=== PATIENT | male | born 1970 | race Caucasian/White ===

== ENCOUNTER 2016-10-01 11:15 | Emergency (ER) | payer OTHER ==
[2016-10-01 14:05] VITALS: BP 117/68
[2016-10-01] MEDS ORDERED: HYDROcodone/ACETAMIN 5-325 MG* 1 TAB PO ONE (14:38)
--- NOTE | 2016-10-01 14:49 | UC ---
Cuca Brown Alfonso, scribed for Kamilah Esteban MD on 10/01/16 at 1438 . Upper Extremity HPI - HPI Summary HPI Summary: This patient is a 46 year old M presenting to [facility] accompanied by with a chief complaint of left shoulder injury that occurred at 0330 this morning. Pain is reported to be an ache. Pt rates the pain 8/10 in severity- increases with movement and palpation. Pain alleviated by rest. Symptoms not alleviated by 2 ibuprofen. Pt reports that the injury occurred secondary to a seizure at 0330 that occurred during his sleep. Pt denies falling out of bed during this seizure. Pt denies arm numbness, tingling, and weakness. Pt is right hand dominant. Pt presented with an arm sling purchased 20 minutes [employer]GRAPH[employer]IST which provided relief. Pt s/p surgery to same shoulder [address] Desouza. No h/o dislocation. PMHx of seizures for 3 months being managed by Dr. Cole. He reports Dr. Cole has prescribed medication that the pt is non-compliant with. Pt states he has scheduled a neurology follow-up. Confirmed with patient strong recommendation not to drive. is his school bus driver/custodian. Patients medication reviewed this visit. - History of Current Complaint Chief Complaint: UCUpperExtremity Stated Complaint: SHOULDER INJURY Time Seen by Provider: 10/01/16 14:28 Hx Obtained From: Patient, Family/Animal Physiologist Onset/Duration: Sudden Onset, Lasting Hours - 0330, Still Present Severity Initially: Moderate Severity Currently: Moderate Pain Intensity: 8 Pain Scale Used: 0-10 Numeric Location Of Pain: Is Discrete @ - left anterior/posterior shoulder Aggravating Factor(s): Movement, Lifting Alleviating Factor(s): Rest Associated Signs And Symptoms: Positive: Negative Related History: Dominant Hand Right - Allergies/Home Medications Allergies/Adverse Reactions: Allergies Allergy/AdvReac Type Severity Reaction Status Date / Time No Known Allergies Allergy Verified 10/01/16 14:05 PMH/Surg Hx/FS Hx/Imm Hx Previously Healthy: Yes - Surgical History Surgical History: Yes Surgery Procedure, Year, and Place: ACHILLES REPAIR LEFT- [facility]. RIGHT ANKLE TENDON REPAIR-[facility]. CYST REMOVAL. left shoulder surgery 2012 - Family History Known Family History: Positive: Diabetes, Other - Cancer - Social History Lives: With Family Alcohol Use: Rare Substance Use Type: None Smoking Status (MU): Never Smoked Tobacco Review of Systems Constitutional: Negative Skin: Negative Eyes: Negative ENT: Negative Respiratory: Negative Cardiovascular: Negative Gastrointestinal: Negative Genitourinary: Negative Motor: Other - Positive left anterior shoulder Neurovascular: Negative Musculoskeletal: Negative Neurological: Other - Positive seizures; negative arm numbness, tingling, and weakness. Psychological: Negative All Other Systems Reviewed And Are Negative: Yes Physical Exam Triage Information Reviewed: Yes Appearance: Well-Appearing, No Pain Distress, Well-Nourished Vital Signs: Initial Vital Signs Temp 97.8 F 10/01/16 14:01 Pulse 63 10/01/16 14:01 Resp 16 10/01/16 14:01 BP 117/68 10/01/16 14:01 Pulse Ox 98 10/01/16 14:01 Vital Signs Reviewed: Yes ENT: Positive: Hearing grossly normal Neck: Positive: Supple, Nontender, No Lymphadenopathy Respiratory: Positive: Chest non-tender, Lungs clear, Normal breath sounds, No respiratory distress, No accessory muscle use Cardiovascular: Positive: Other: - 2+ radial, 2+ ulnar CBT < 2 sec Musculoskeletal: Positive: Other: - + TTP left anterior shoulder + left mild left posterior shoulder Pain with abduction and full extension + flex/ext elbow , wrist + pronate/supinate + flex/ext wrist Neurological Exam: Normal Neurological: Positive: Other: - + sensation throughout including left lateral UE, + thumb up, a ok, finger spread, finger cross + gross sensation Psychological Exam: Normal Skin Exam: Normal Diagnostics - Radiology Shoulder X-Ray Radiology Interpretation Completed By: Radiologist - CASA-SAC FRACTURE. Re-Evaluation - Re-Evaluation First Eval Re-Evaluation Time: 15:19 Change: Improved - REviewed with pt No known h/o dislcation. Will refer to orthopedic sling ice rest narcotic Rx given with precaustions - precautions given again reviewed recommendations for driving and machinery given seziure + abduction - PROM to 90 degrees - limited second to pain + extenstion to 90 PROM - limited second to pain Upper Extremity Course/Dx - Course Course Of Treatment: differential includes: dislocation, fracture, sprain, strain, tear. will give analgesia. ice. rest. ortho referral. if dislocation, ED transfer. pt and s spouse comfortable and in agreement with plan. 46 year old MF presents to the [facility] with a CC of left shoulder injury that occurred at 0330. Pt reports that the injury occurred secondary to a seizure at 0330 that occurred during his sleep. Pt denies falling out of bed during this seizure. Pt denies arm numbness, tingling, and weakness. Pt s/p surgery to same shoulder [address] Desouza. No h/o dislocation. PMHx of seizures for 3 months being managed by Dr. Cole. He reports Dr. Cole has prescribed medication that the pt is non-compliant with. Shoulder X-Ray reveals HILL-SACHS FRACTURE. We discussed patient care with Dr. Kruse ( radiologist) at 1515. Patient will be discharged with follow up from Dr. Cole ( neurology) and Dr. Pedroza (orthopedics). Pt is agreeable with this plan. Pt with left shoulder pain which occurred at 330 during seizure. Pt with pain with palpation and movement. distal CSM intact - Differential Dx/Diagnosis Provider Diagnoses: hill sachs deformity left. shoulder injury left. seizure - Physician Notification/Consults Discussed Patient Care With: Antoine Kruse Time Discussed With Above Provider: 15:15 Instructed by Provider To: Other - Consulted Dr. Kruse (radiologist) to discuss if the x-ray finding is acute or related to pt's PSHx. - no current dislocation Discharge - Discharge Plan Condition: Stable Disposition: HOME Prescriptions: HYDROcodone/ACETAMIN 5-325 MG* [[place]ord 5-325 TAB*] 1 - 2 tab PO Q6H PRN #20 tab MDD 8 PRN Reason: Pain Patient Education Materials: Shoulder Pain (ED) Referrals: Yesika Pedroza MD [Medical Doctor] - As Soon As Possible Additional Instructions: - Wear sling for comfort and support. Try to relax your arm in sling to let your muscles rest - Okay to alternate ibuprofen (Advil, Motrin) 600mg and tylenol product ( Tylenol or [place]ord) every 3 hours pain. Take with food. Se[place]ord contains a narcotic - may cause droswiness and constipation - apply ice, 20 minutes at a time, 2-3 times a day for pain - Contact the orthopedic referral to schedule a follow-up appointment. You may contact a different orthopedist if you refer. - It is strongly recommended you refrain from driving, operating equiptment until you have been cleared by your neurologist. You should also refrain from these activities while taking Se[place]ord The documentation as recorded by the scribe, Caetta,Aguilar accurately reflects the service I personally performed and the decisions made by , Kamilah Esteban MD.
--- NOTE | 2016-10-01 15:11 | RAD ---
INDICATION: Left shoulder injury. TECHNIQUE: 5 views of the left shoulder were obtained. FINDINGS: There is flattening of the superior lateral aspect of the humeral head consistent with a Hill-Sachs type fracture. The bones appear to be in normal alignment. IMPRESSION: HILL-SACHS FRACTURE.
== END 2016-10-01 15:41 | disposition home or self-care (01) ==
LOC: UCEAST 11:15
DX: S42.292A Other displaced fracture of upper end of left humerus, initial encounter for closed fracture (principal); S49.92XA Unspecified injury of left shoulder and upper arm, initial encounter; X50.0XXA Overexertion from strenuous movement or load, initial encounter; Y93.89 Activity, other specified; Y92.003 Bedroom of unspecified non-institutional (private) residence as the place of occurrence of the external cause; Y99.9 Unspecified external cause status; R56.9 Unspecified convulsions; T50.906A Underdosing of unspecified drugs, medicaments and biological substances, initial encounter; Z91.128 Patient's intentional underdosing of medication regimen for other reason
CPT/HCPCS: 99212; G0463

== ENCOUNTER 2017-09-08 18:29 | Emergency (ER) | payer OTHER ==
--- OUTSIDE RECORDS SUMMARY | 2017-09-08 18:43 | XMS REPORT ---
:1970 External Reference #:[id number] Author Organization [facility] Address [address] [facility] [place] [address] Phone [phone] Care Team Providers Name Role Phone Enma Field MD Care Team Information Roll Changer Unavailable Enma Field MD Primary Care Physician Unavailable Payers Type Date Identification Numbers Payment Provider Subscriber Commercial Effective: Policy Number: [employer] Cody Shirley 2006 [id number] [employer] Number: [id number] [address] PayID: [id number] [place] [address] Problems Date Description Provider Status Onset: 05/10/2017 Local-rel symptc epi w simp prt seiz,not Marilyn Cole MD Active ntrct, w/o stat epi Onset: 05/10/2017 Difficulty breathing Marilyn Cole MD Active Onset: 05/10/2017 Complex partial epileptic seizure Marilyn Cole MD Active Onset: 09/17/2016 Other seizures Marilyn Cole MD Active Onset: 07/11/2011 Impaired fasting glycaemia Juanita Campbell M.D. Active Onset: 07/11/2011 Pure hypercholesterolemia Juanita Campbell M.D. Active Family History Date Family Member(s) Problem(s) Comments General heart disease General diabetes General cancer General Hypertension Social History Type Date Description Comments Marital Status Lives With Spouse Occupation college teacher Cigars Currently Smokes an Occasional 1/4 in past three weeks Cigar ETOH Use Currently consumes alcohol 2/week Smoking Patient has never smoked Exercise Type/Frequency Exercises regularly Allergies, Adverse Reactions, Alerts Date Description Reaction Status Severity Comments 03/30/2010 No Known Drug Allergy active Medications Medication Date Status Form Strength Qnty SIG Indications Ordering Provider Aptiom 10/22 Active Tablets 400mg 90tab 3 tablets Christopher s daily Casey Bruno CBD Active prn Unknown /0000 Hydrocodone-Ac 10/05 Hx Tablets 5-325mg 20tab 1 tabs by Brandon mendoza s mouth every MD Mary - 6-8 hours as 05/09 needed for pain No Active 09/17 Hx Unknown Medications /2016 - 09/17 Oxcarbazepine 09/17 Hx Tablets 300mg 120ta 1 by mouth G40.89 Marilyn Cole, bs twice a day - x7 day then 10/04 1 in the Am /2016 and 2 in the PM x7 days then 2 twice a day. Magic 07/12 Hx 360un swish and Ervin Stanford Mouthwash-Ma its spit 5-10ml SHEET ROCK NAILER ox,Lidocaine, - every 6 Nystatin,Diphe 09/17 hours nhydramine Hydrocodone-Ac 07/04 Hx Tablets 5-325mg 30tab take 1-2 S01.512A reji [place] s tablets SHEET ROCK NAILER - every 8 09/17 hours for pain. Oxycodone-Acet 06/30 Hx Tablets 5-325mg 30tab 1-2 tabs po Reji Young aminophen s q 4 hrs prn M.D. - pain 08/31 Percocet 05/19 Hx Tablets 5-325mg 60tab take 1-2 Reji s tabs by MBennie - mouth q4-6 / hours needed pain Oxycodone/Acet 04/21 Hx Tablets 5-325mg 30tab 1-2 tabs po Reji Young, aminophen s q 4 hrs prn M.D. - pain 06/30 Percocet 04/09 Hx Tablets 5-325mg 60tab 1-2 tabs po Reji Young, s q4-6 hrs prn M.D. - pain 04/21 Valium 01/28 Hx Tablets 10mg 1tabs 1 tablet po 30 minutes Varn, N.P. - before mri 04/21 Tramadol HCL 01/28 Hx Tablets 50mg 30tab 1 tablet s three to Varn, N.P. - four times 04/21 daily needed Vivotif Pamella 01/21 Hx Capsules 4caps one po qod V65.49 DR for 4 doses Varn, N.P. - 01/29 Malarone 01/21 Hx Tablets 250-100mg 30tab one po daily V65.49 s starting 1 - Varn, N.P. - 2 days 04/21 arriving and continue for 7 days after leaving destination No Active 06/21 Hx Juanita Campbell, MCarlosDCarlos - 01/21 Oxycodone/Acet 00/00 Hx Unknown aminophen /0000 - 04/21 Advil 00/ Hx Unknown /0000 - 09/17 Levetiracetam Hx Tablets 750mg take one Unknown /0000 tablet by - mouth twice 09/17 a day /2016 Vitamin B 00/00 Hx Unknown /0000 - 05/09 Vitamin E 00/00 Hx Unknown /0000 - 05/09 Immunizations CPT Code Status Date Vaccine Lot # [id number] Given 02/20/2013 Hepatitis B Vaccine Adult Dosage [id number] Given 02/20/2013 Tdap - Tetanus/Diptheria/Acellular Pertussis 24974 Given 02/20/2013 Tdap - Tetanus/Diptheria/Acellular Pertussis [id number] 23894 Given 01/21/2013 Hepatitis B Vaccine Adult Dosage [id number] 77047 Given 01/21/2013 Hepatitis A Vaccine Adult Dosage [id number] 31536 Given 02/01/2006 Influenza Virus 3Yrs & Over [id number] Given 02/01/2006 Influenza Virus 3Yrs & Over Vital Signs Date Vital Result Comment 08/21/2017 Height 71 inches 5'11" Weight 185.00 lb Heart Rate 68 /min BP Systolic Sitting 116 mmHg BP Diastolic Sitting 78 mmHg Respiratory Rate 16 /min BMI (Body Mass Index) 25.8 kg/m2 05/10/2017 Height 71 inches 5'11" Weight 189.56 lb Heart Rate 70 /min BP Systolic 134 mmHg BP Diastolic 88 mmHg BMI (Body Mass Index) 26.4 kg/m2 10/10/2016 Height 71 inches 5'11" Weight 179.00 lb BP Systolic 116 mmHg BP Diastolic 66 mmHg Body Temperature 97.9 F Pain Level 5 BMI (Body Mass Index) 25.0 kg/m2 10/05/2016 Height 71 inches 5'11" Weight 179.00 lb Heart Rate 78 /min BP Systolic 118 mmHg BP Diastolic 72 mmHg BMI (Body Mass Index) 25.0 kg/m2 09/17/2016 Height 71 inches 5'11" Weight 181.00 lb Heart Rate 68 /min BP Systolic Sitting 110 mmHg BP Diastolic Sitting 84 mmHg Respiratory Rate 14 /min BMI (Body Mass Index) 25.2 kg/m2 07/20/2016 Weight 178.25 lb Heart Rate 72 /min BP Systolic 118 mmHg BP Diastolic 80 mmHg Body Temperature 97.0 F O2 % BldC Oximetry 97 % 07/04/2016 Weight 182.50 lb Heart Rate 78 /min BP Systolic 126 mmHg BP Diastolic 88 mmHg Body Temperature 98.4 F O2 % BldC Oximetry 98 % 09/01/2013 Height 73 inches 6'1" Heart Rate 60 /min BP Systolic 116 mmHg BP Diastolic 86 mmHg 06/30/2013 Height 73 inches 6'1" Weight 190.00 lb Heart Rate 80 /min BMI (Body Mass Index) 25.1 kg/m2 05/19/2013 Height 73 inches 6'1" Weight 190.00 lb Heart Rate 64 /min BMI (Body Mass Index) 25.1 kg/m2 03/17/2013 Height 73 inches 6'1" Weight 190.00 lb Heart Rate 65 /min BP Systolic 134 mmHg BP Diastolic 84 mmHg BMI (Body Mass Index) 25.1 kg/m2 01/21/2013 Weight 198.00 lb Heart Rate 80 /min BP Systolic Sitting 124 mmHg BP Diastolic Sitting 82 mmHg 02/15/2012 Height 71 inches 5'11" Weight 189.00 lb Heart Rate 80 /min BP Systolic Sitting 126 mmHg BP Diastolic Sitting 74 mmHg BMI (Body Mass Index) 26.4 kg/m2 01/16/2012 Height 71 inches 5'11" Weight 184.00 lb Heart Rate 78 /min BP Systolic Sitting 124 mmHg BP Diastolic Sitting 80 mmHg BMI (Body Mass Index) 25.7 kg/m2 12/31/2011 Height 71 inches 5'11" Weight 183.00 lb Heart Rate 80 /min BP Systolic Sitting 120 mmHg BP Diastolic Sitting 80 mmHg BMI (Body Mass Index) 25.5 kg/m2 07/11/2011 Height 71 inches 5'11" Weight 195.00 lb Heart Rate 78 /min BP Systolic Sitting 124 mmHg BP Diastolic Sitting 70 mmHg BMI (Body Mass Index) 27.2 kg/m2 06/22/2011 Height 71 inches 5'11" Weight 192.00 lb Heart Rate 80 /min BP Systolic Sitting 112 mmHg BP Diastolic Sitting 74 mmHg BMI (Body Mass Index) 26.8 kg/m2 03/30/2010 Heart Rate 80 /min BP Systolic 112 mmHg BP Diastolic 76 mmHg Body Temperature 99.3 F Results Test Date Test Result H/L Range Note Comp Metabolic Panel 05/09/2017 Sodium 137 mmol/L 133-145 Potassium 4.3 mmol/L 3.5-5.0 Chloride 105 mmol/L 101-111 Co2 Carbon Dioxide 23 mmol/L 22-32 Anion Gap 9 mmol/L 2-11 Glucose 94 mg/dL 70-100 Blood Urea Nitrogen 20 mg/dL 6-24 Creatinine 0.86 mg/dL 0.67-1.17 BUN/Creatinine Ratio 23.3 High 8-20 Calcium 9.6 mg/dL 8.6-10.3 Total Protein 6.8 g/dL 6.4-8.9 Albumin 4.4 g/dL 3.2-5.2 Globulin 2.4 g/dL 2-4 Albumin/Globulin Ratio 1.8 1-3 Total Bilirubin 0.60 mg/dL 0.2-1.0 Alkaline Phosphatase 61 U/L 34-104 Alt 18 U/L 7-52 Ast 19 U/L 13-39 Egfr Non- 96.2 >60 Egfr 123.7 >60 1 CBC Auto Diff 05/09/2017 White Blood Count 4.7 10^3/uL 3.5-10.8 Red Blood Count 4.92 10^6/uL 4.0-5.4 Hemoglobin 15.6 g/dL 14.0-18.0 Hematocrit 45 % 42-52 Mean Corpuscular Volume 91 fL 80-94 Mean Corpuscular Hemoglobin 32 pg High 27-31 Mean Corpuscular HGB Conc 35 g/dL 31-36 Red Cell Distribution Width 13 % 10.5-15 Platelet Count 194 10^3/uL 150-450 Mean Platelet Volume 7 um3 Low 7.4-10.4 Abs Neutrophils 1.8 10^3/uL 1.5-7.7 Abs Lymphocytes 2.3 10^3/uL 1.0-4.8 Abs Monocytes 0.4 10^3/uL 0-0.8 Abs Eosinophils 0.2 10^3/uL 0-0.6 Abs Basophils 0.1 10^3/uL 0-0.2 Abs Nucleated RBC 0 10^3/uL Granulocyte % 38.4 % 38-83 Lymphocyte % 48.1 % High 25-47 Monocyte % 8.3 % High 0-7 Eosinophil % 4.0 % 0-6 Basophil % 1.2 % 0-2 Nucleated Red Blood Cells % 0.1 Laboratory test 05/09/2017 Trileptal (Oxcarbazepine) 18 g/mL 3 - 35 2 finding Surgical Pathology 04/15/2012 S RUN DATE: <SEE NOTE> Lipid Profile 01/04/2012 Triglycerides 51 mg/dL 40-200 (Trig/Chol/HDL) Cholesterol 206 mg/dL High Less than 200 4 HDL Cholesterol 56 mg/dL 40-60 5 Cholesterol/HDL Ratio 3.7 AVERAGE 1-4.44 LDL Cholesterol 139.8 mg/dL High Less Than 100 Laboratory test finding 01/04/2012 Hemoglobin A1c 5.5 % Less than 6.0 6 Immunoglobulin A 166 mg/dL 61 - 356 7 Transglutaminase Igg & Iga 01/04/2012 Tissue Transglutaminase IgA Ab <1.2 U/ mL 8 Tissue Transglutaminase IgG Ab <1.2 U/mL 9 Comp Metabolic Panel 01/04/2012 Sodium 140 mmol/L 133-145 Potassium 4.3 mmol/L 3.5-5.0 Chloride 107 mmol/L 101-111 Co2 Carbon Dioxide 27.0 mmol/L 22-32 Anion Gap 6.0 mmol/L 2-11 Glucose 92 mg/dL 70-100 Blood Urea Nitrogen 13 mg/dL 6-24 Creatinine 1.00 mg/dL 0.50-1.40 BUN/Creatinine Ratio 13.0 8-20 Calcium 9.2 mg/dL 8.1-9.9 Total Protein 5.8 GM/DL Low 6.2-8.1 Albumin 4.0 GM/DL 3.6-5.4 Globulin 1.8 GM/DL Low 2-4 Albumin/Globulin Ratio 2.2 1-3 Total Bilirubin 1.1 mg/dL High 0.1-1.0 10 Alkaline Phosphatase 48 U/L 30-110 Alt 20 U/L 14-54 Ast 17 U/L 12-42 Egfr Non- 82.8 >60 Egfr 106.4 >60 11 Lipid Panel - [facility] 01/04/2012 Creatine Kinase 170 U/L 0-200 12 Lipid Panel - [facility] 06/22/2011 CPK (Creatine Kinase) 249 U/L High 0-200 Comp Metabolic Panel 06/22/2011 Sodium 140 mmol/L 135-145 Potassium 4.5 mmol/L 3.5-5.0 Chloride 108 mmol/L 101-111 Co2 (Carbon Dioxide) 28.0 mmol/L 22-32 Anion Gap 4.0 mmol/L 2-11 13 Glucose 97 mg/dL 70-100 BUN 11 mg/dL 6-24 Creatinine 0.9 mg/dL 0.50-1.40 One Over Creatinine 1.11 BUN/Creatinine Ratio 12.2 8-20 Calcium 9.4 mg/dL 8.1-9.9 Total Protein 6.6 GM/DL 6.2-8.1 Albumin 4.3 GM/DL 3.6-5.4 Globulin 2.3 GM/DL 2-4 Albumin/Globulin Ratio 1.9 1-3 Bilirubin Total 0.9 mg/dL 0.4-1.5 14 Alkaline Phosphatase 50 U/L 39-117 Alt (SGPT) 22 U/L 17-63 Ast (Sgot) 22 U/L 12-42 eGFR Non- 93.9 > 60 eGFR 120.8 > 60 15 Lipid Profile (Trig/Chol/HDL) 06/22/2011 Triglyceride 53 mg/dL 40-200 Cholesterol 263 mg/dL High Less Than 200 16 High Density Lipoprotein 54 mg/dL 40-60 17 Cholesterol/HDL Ratio 4.87 AVERAGE 1-4.97 Low Density Lipoprotein 198 mg/dL High Less Than 100 18 Laboratory test finding 06/22/2011 Hemoglobin A1c 5.6 % Less Than 6.0 19 1 Because ethnic data is not always readily available, this report includes an eGFR for both -Americans and non- Americans. The National Kidney Disease Education Program (NKDEP) does not endorse the use of the MDRD equation for patients that are not between the ages of 18 and 70, are , have extremes of body size, muscle mass, or nutritional status, or are non- or non-. According to the National Kidney Foundation, irrespective of diagnosis, the stage of the disease is based on the level of kidney function: Stage Description GFR(mL/min/1.73 m(2)) 1 Kidney damage with normal or decreased GFR 90 2 Kidney damage with mild decrease in GFR 60-89 3 Moderate decrease in GFR 30-59 4 Severe decrease in GFR 15-29 5 Kidney failure <15 (or dialysis) 2 ADDITIONAL INFORMATION This test was developed and its performance characteristics determined by [facility] in a manner consistent with CLIA requirements. This test has not been cleared or approved by the U.S. Food and Drug Administration. Test Performed by: [facility] [address] [place] [id number] 3 RUN DATE: 04/17/12 [facility] LAB LIVE PAGE 1 RUN TIME: 16[address] [place], [place] [address] Specimen Inquiry Name: CODY LOPEZ : [address]: Scott Stewart MD Acct: [id number] Unit: [id number] AGE: 41 Location: [facility] Re04/15/12 SEX: M Status: REG REF SPEC: [id number] ABELINO: 04/15/12- SUBM DR: Scott Stewart MD REQ: [id number] RECD: 04/16/1251 STATUS: LAURA GONG DR: Juanita Campbell MD _ ORDERED: LEVEL IV/2 FINAL DIAGNOSIS 1. Colon, random biopsies: A. Large intestinal mucosa with mild architectural disorder and scattered lamina propria muciphages. B. No evidence of microscopic/lymphocytic colitis, collagenous colitis, or other chronic inflammatory bowel process identified. 2. Colon, 15 cm., biopsy: Hyperplastic polyp. COMMENTS: The findings in part 1 are most suggestive of resolving prior insult. CLINICAL HISTORY Diarrhea POST-OPERATIVE DIAGNOSIS To terminal ileum - normal. Random biopsy taken; polyp at 15 cm., biopsied GROSS DESCRIPTION 1. The specimen is received in formalin labelled Cody Lopez, Biopsies Random Colon, and consists of multiple plata, soft tissue fragments measuring 1.0 x 0.8 x 0.2 cm. Submitted entirely, one cassette. 2. The specimen is received in formalin labelled Cody Lopez, Biopsy Colon Polyp at 15 cm., and consists of a plata, soft tissue fragment measuring 0.3 x 0.2 x 0.2 cm. Submitted CONTINUED ON NEXT PAGE * ML=Testing performed at Main Lab DEPARTMENT OF PATHOLOGY, [facility] ReferralMD [place] [address] Mitchell Menjivar M.D. Director [facility] Permit #[id number] RUN DATE: 04/17/12 [facility] LAB LIVE PAGE 2 RUN TIME: [address] [facility] [employer] [place], [place] [address] Specimen Inquiry Patient: CODY LOPEZ [id number] (Continued) GROSS DESCRIPTION (Continued) GROSS DESCRIPTION (Continued) entirely, one cassette. Signed (signature on file) Mitchell Menjivar MD 1615 END OF REPORT * ML=Testing performed at Main Lab DEPARTMENT OF PATHOLOGY, [address] [place] [address] Mitchell Menjivar M.D. Director [facility] Permit #[id number] 4 Desirable: Less than 200 MG/DL Borderline-High Risk: 200-239 MG/DL High-Risk: 240 MG/DL and over 5 HDL Interpretation: Undesirable: High Risk: Less than 40 MG/DL Desirable: Low Risk: Greater than 60 MG/DL 6 Therapeutic target for the treatment of diabetes Mellitus patients is <7% HBA1C, and in selective patients <6.0%.Please refer to [place] [employer] Diabetic care guidelines for further information. 7 Test Performed by: [address] [address] Thermal Cutting Machine Operator: Vineet Strickland III, M.D. R 8 -- REFERENCE VALUE -- <4.0 (Negative) R 9 -- REFERENCE VALUE -- <6.0 (Negative) Test Performed by: [address] [address] [employer] Cutting Machine Operator: Vineet Strickland III, M.D. R 10 A metabolite of Naproxen, O-desmethylnaproxen, has been shown to interfere with the Jendrassik-Flandreau method for measuring total bilirubin. Samples from patients who have taken Naproxen have shown spurious elevation in total bilirubin levels. 11 Because ethnic data is not always readily available, this report includes an eGFR for both -Americans and non- Americans. The National Kidney Disease Education Program (NKDEP) does not endorse the use of the MDRD equation for patients that are not between the ages of 18 and 70, are , have extremes of body size, muscle mass, or nutritional status, or are non- or non-. According to the National Kidney Foundation, irrespective of diagnosis, the stage of the disease is based on the level of kidney function: Stage Description GFR(mL/min/1.73 m(2)) 1 Kidney damage with normal or decreased GFR 90 2 Kidney damage with mild decrease in GFR 60-89 3 Moderate decrease in GFR 30-59 4 Severe decrease in GFR 15-29 5 Kidney failure <15 (or dialysis) 12 FASTING 13 Anion gap measurement may be of limited value in the presence of any alkalosis, especially in a combined acid base disorder. . 14 A metabolite of Naproxen, O-desmethylnaproxen, has been shown to interfere with the Jendrassik-Nita method for measuring total bilirubin. Samples from patients who have taken Naproxen have shown spurious elevation in total bilirubin levels. 15 Because ethnic data is not always readily available, this report includes an eGFR for both -Americans and non- Americans. The National Kidney Disease Education Program (NKDEP) does not endorse the use of the MDRD equation for patients that are not between the ages of 18 and 70, are , have extremes of body size, muscle mass, or nutritional status, or are non- or non-. According to the National Kidney Foundation, irrespective of diagnosis, the stage of the disease is based on the level of kidney function: Stage Description GFR(mL/min/1.73 m(2)) 1 Kidney damage with normal or decreased GFR 90 2 Kidney damage with mild decrease in GFR 60-89 3 Moderate decrease in GFR 30-59 4 Severe decrease in GFR 15-29 5 Kidney failure <15 (or dialysis) 16 CHOLESTEROL INTERPRETATION: Desirable: Less than 200 MG/DL Borderline-High Risk: 200-239 MG/DL High-Risk: 240 MG/DL and over 17 HDL INTERPRETATION: Undesirable: High Risk: Less than 40 MG/DL Desirable: Low Risk: Greater than 60 MG/DL 18 LDL INTERPRETATION: Low Risk Optimal Level: LDL Less than 100 MG/DL Near or Above Optimal: LDL 100-129 MG/DL Borderline High Risk: LDL 130-159 MG/DL High Risk: LDL 160-189 MG/DL Very High Risk: LDL Greater than 189 MG/DL 19 THERAPEUTIC TARGET FOR THE TREATMENT OF DIABETES MELLITUS PATIENTS IS <7% HBA1C, AND IN SELECTIVE PATIENTS <6.0%. PLEASE REFER TO [place] [employer]ATION DIABETIC CARE GUIDELINES FOR FURTHER INFORMATION. Procedures Date CPT Code Description Status 09/03/2016 91956 EEG Recording Awake & Asleep Completed 07/02/2016 85409 EEG Recording Awake & Asleep Completed 04/10/2013 72734 Arthroscopy Shoulder Debridement Limited Completed 04/10/2013 53234 Arthroscopy Shoulder Debridement Limited Completed 04/10/2013 14924 Tenodesis Biceps Long Tendon Completed 04/10/2013 61287 Tenodesis Biceps Long Tendon Completed Encounters Type Date Location Provider CPT E/M Dx Office Visit 08/21/2017 [facility] [address] G40.109 3:30p R06.83 Office Visit 05/10/2017 11:30a [facility] [address] G40.109 R06.83 Office Visit 10/10/2016 3:30p [place] [address] S43.015A Of [facility] Office Visit 10/05/2016 10:30a [place] [address] S43.015A Of [facility] Office Visit 09/17/2016 9:00a [place] [address] G40.89 Services Of [facility] Office Visit 07/20/2016 9:00a [facility] [place] [address] Z00.00 - [place] Z13.220 Z13.1 Office Visit 07/04/2016 2:20p [facility] [place] [address] S01.512A - [place] Office Visit 07/03/2016 9:01a [facility], [address]47 R56.9 Assoc, Hospitalists Casey R73.9 E87.2 Office Visit 07/03/2016 2:26p [facility] [address] R56.9 Office Visit 07/02/2016 9:00a [facility] Assoc,[facility], 99342 R56.9 Hospitalists Casey R73.9 E87.2 Office Visit 07/02/2016 2:25p [facility] [address] R56.9 Office Visit 09/01/2013 8:15a [facility] Of Reji Desouza, 19434 719.41 C.M.A. M.Kassy Office Visit 03/17/2013 10:30a [facility] Of Berta Swan, 75372 840.7 C.M.A. RPA-C Office Visit 01/21/2013 9:40a [facility] Internal Medicine - Natalia Keita, 733[address] V65.49 [place] N.P. 719.41 V05.3 Office Visit 02/15/2012 8:40a [facility] Internal Medicine - Juanita Campbell M.D. 28851 272.0 [place] 783.21 Office Visit 01/16/2012 3:00p [facility] Internal Medicine - Juanita Campbell M.D. 61540 558.9 [place] 272.0 790.21 995.3 Office Visit 12/31/2011 9:40a [facility] Internal Medicine - Juanita Campbell M.D. 92485 272.0 [place] 790.21 558.9 Office Visit 07/11/2011 3:00p [facility] Internal Medicine - Juanita Campbell M.D. 81728 272.0 [place] 790.21 Office Visit 06/22/2011 10:00a [facility] Internal Medicine - Juanita Campbell M.D. 84787 V70.0 [place] 840.4 Office Visit 03/30/2010 4:15p DO Not Use [facility] Sonia Mao, 84816 478.6 M.D., FACP Office Visit 04/11/2009 2:00p DO Not Use [facility] Gracia Baum, 79408 780.60 M.D. 558.9 Office Visit 09/16/2008 8:30a DO Not Use [facility] Natalia Varn, 17040 709.9 N.P. 608.89 783.21 Office Visit 04/19/2008 1:15p DO Not Use [facility] Natalia Varn, 25131 V70.0 N.P. Office Visit 04/07/2008 2:30p DO Not Use [facility] Natalia Varn, 39218 380.4 N.P. Office Visit 05/20/2007 11:45a DO Not Use [facility] Natalia Varn, 76663 558.9 N.P. 079.99 Office Visit 12/25/2006 1:15p DO Not Use [facility] Natalia Varn, 14844 466.0 N.P. 461.9 Office Visit 04/01/2006 2:15p DO Not Use [facility] Natalia Varn, 69977 461.9 N.P. 466.0 Office Visit 02/01/2006 2:30p DO Not Use [facility] Sonia Mao, 77683 466.0 M.D., FACP 493.90 V04.81 Plan of Care 08/21/2017 - Marilyn Cole MDG40.109 Local-rel symptc epi w simp prt seiz,not ntrct, w/o stat epiReferral:[facility] Clinic/ CenterFollow up:: 3 months RochesterRecommendations:Try increasing Aptiom to 3.5 tablets daily for 1 to 2 weeks, then increase to 4 tabs [facility] [place] [phone] SnoringRecommendations:we will hold off on sleep study for now.
[2017-09-08] MEDS ORDERED: NS 0.9% 1000 ML* 1,000 ML IV ONE (19:15)
[2017-09-08] MEDS ORDERED: Ketorolac INJ* 30 MG/ML 1 ML VIAL IV PUSH ONE (19:17)
[2017-09-08] MEDS ORDERED: diPHENhydraMINE IV* 50 MG/ML 1 ml VIAL (BENADRYL) IV ONE (19:17)
[2017-09-08] MEDS ORDERED: Metoclopramide IV* 5 MG/ML 2 ML VIAL IV SLOW PU ONE (19:17)
[2017-09-08 19:40] LABS: ABS Basophils 0.1 10^3/ul (0-0.2); ABS Eosinophils 0 10^3/ul (0-0.6); ABS Lymphocytes 0.7 10^3/ul (1.0-4.8); ABS Monocytes 0.5 10^3/ul (0-0.8); ABS Neutrophils 11.5 10^3/ul (1.5-7.7); ABS Nucleated RBC 0 10^3/ul; Eosinophil % 0.1 % (0-6); Hematocrit 49 % (42-52); Hemoglobin 17.1 g/dl (14.0-18.0); Lymphocyte % 5.3 % (25-47); Mean Corpuscular HGB Conc 35 g/dl (31-36); Mean Corpuscular Hemoglobin 32 pg (27-31); Mean Corpuscular Volume 91 fL (80-94); Nucleated Red Blood Cells % 0; Platelet Count 200 10^3/ul (150-450); Red Cell Distribution Width 13 % (10.5-15); White Blood Count 12.8 10^3/ul (3.5-10.8)
--- NOTE | 2017-09-08 19:49 | RAD ---
INDICATION: Seizure COMPARISON: July 02, 2016 TECHNIQUE: Noncontrast axial source images were acquired from the skull base to the vertex. FINDINGS: Ventricles/sulci: The ventricles and cisterns are normal in size and configuration for age. Brain parenchyma: There is no focal parenchymal finding, evidence of intracranial mass, or intracranial mass effect. Intracranial hemorrhage:None. Extra-axial spaces: There are no abnormal extra axial fluid collections or evidence of extra-axial mass. Calvarium: There is no calvarial fracture or other calvarial abnormality. Scalp: There is no evidence of scalp or extracalvarial soft tissue abnormality. Paranasal sinuses/mastoid: The paranasal sinuses and mastoid air cells are clear. Other: None. IMPRESSION: No acute intracranial findings
[2017-09-08 20:03] LABS: EGFR Non-African American 79.5 (>60)
[2017-09-08] MEDS ORDERED: Morphine VIAL* 4 MG/ML VIAL (1 ml vial) IV ONE (20:05)
[2017-09-08 21:06] LABS: Urine Appearance Cloudy; Urine Blood 1+ (Negative); Urine Color Yellow; Urine Ketones Trace (Negative); Urine Protein 1+(30 mg/dL) (Negative); Urine Urobilinogen Negative (Negative)
--- NOTE | 2017-09-08 21:24 | ED ---
Naz Brown Emily, scribed for Renny Kraus MD on 09/08/17 at 1918 . Complex/Multi-Sys Presentation - HPI Summary HPI Summary: This patient is a 47 year old M presenting to [facility] accompanied by with a chief complaint of 3 seizure-like episodes lasting approximately 5 minutes that began earlier today. The patient rates the pain 8/10 in severity. Symptoms aggravated by nothing. Symptoms alleviated by nothing. Patient reports headache. Patient denies fever and cough. The patient reports that he has a history of seizures beginning one year ago, and the most recent episode occurring 10 months ago. reports that the patient increased his dosage of his seizure medication, Aptiom taken at 1900 daily, to 1400 mg one week ago. reports that the patient does not normally have headaches after his seizures. - History Of Current Complaint Chief Complaint: EDSeizure Time Seen by Provider: 09/08/17 19:05 Hx Obtained From: Patient, Family/Video Network Engineer Onset/Duration: Sudden Onset, Lasting Minutes, Resolved Timing: Intermittent, Lasting:, Minutes Severity Currently: Severe Severity Initially: Severe Character: Typical Headache Aggravating Factor(s): Nothing Alleviating Factor(s): Nothing Associated Signs And Symptoms: Positive: Other - Positive headache. Negative fever and cough. Related History: Similar Episode/Diagnosed As: - Seizures - Allergies/Home Medications Allergies/Adverse Reactions: Allergies Allergy/AdvReac Type Severity Reaction Status Date / Time No Known Allergies Allergy Verified 09/08/17 18:33 Home Medications: Home Medications Eslicarbazepine Acetate [Aptiom] 1,400 mg PO DAILY 09/08/17 [History Confirmed 09/08/17] PMH/Surg Hx/FS Hx/Imm Hx Previously Healthy: No Cardiovascular History: Denies: Hx Pacemaker/ICD Respiratory History: Reports: Hx Asthma - CHILDHOOD Sensory History: Denies: Hx Contacts or Glasses, Hx Hearing Aid Opthamlomology History: Denies: Hx Contacts or Glasses Neurological History: Reports: Hx Seizures Psychiatric History: Denies: Hx Panic Disorder - Surgical History Surgery Procedure, Year, and Place: RT ANKLE TENDON REPAIR. LT ANKLE ACHILLES REPAIR. SLAPTEAR REPAIR LT SHOULDER Hx Anesthesia Reactions: No Infectious Disease History: No Infectious Disease History: Denies: Traveled Outside the [place] in Last 30 Days - Family History Known Family History: Positive: Hypertension, Diabetes, Other - Cancer - Social History Occupation: Employed Full-time Lives: With Family Alcohol Use: Occasionally Hx Substance Use: No Substance Use Type: Reports: None Hx Tobacco Use: Yes Smoking Status (MU): Current Some Day Smoker Type: Cigars Review of Systems Negative: Fever Negative: Cough Neurological: Other - Positive seizure like episodes Positive: Headache All Other Systems Reviewed And Are Negative: Yes Physical Exam - Summary Physical Exam Summary: VITAL SIGNS: Reviewed. GENERAL: Patient is a well-developed and nourished male who is lying comfortable in the stretcher. Patient is not in any acute respiratory distress. HEAD AND FACE: No signs of trauma. No ecchymosis, hematomas or skull depressions. No sinus tenderness. EYES: PERRLA, EOMI x 2, No injected conjunctiva, no nystagmus. EARS: Hearing grossly intact. Ear canals and tympanic membranes are within normal limits. MOUTH: Oropharynx within normal limits. NECK: Supple, trachea is midline, no adenopathy, no JVD, no carotid bruit, no c- spine tenderness, neck with full ROM. CHEST: Symmetric, no tenderness at palpation LUNGS: Clear to auscultation bilaterally. No wheezing or crackles. CVS: Regular rate and rhythm, S1 and S2 present, no murmurs or gallops appreciated. ABDOMEN: Soft, non-tender. No signs of distention. No rebound no guarding, and no masses palpated. Bowel sounds are normal. EXTREMITIES: FROM in all major joints, no edema, no cyanosis or clubbing. NEURO: Alert and oriented x 3. No acute neurological deficits. Speech is normal and follows commands. SKIN: Dry and warm Triage Information Reviewed: Yes Vital Signs On Initial Exam: Initial Vitals Temp Pulse Resp BP Pulse Ox 98.4 F 111 16 149/93 98 09/08/17 18:33 09/08/17 18:33 09/08/17 18:33 09/08/17 18:33 09/08/17 18:33 Vital Signs Reviewed: Yes Diagnostics - Vital Signs Vital Signs Temp Pulse Resp BP Pulse Ox 09/08/17 18:33 98.4 F 111 16 149/93 98 - Laboratory Result Diagrams: 09/08/17 19:36 09/08/17 19:36 Lab Statement: Any lab studies that have been ordered have been reviewed, and results considered in the medical decision making process. - CT Brain CT CT Interpretation Completed By: Radiologist - Brain CT reveals, per radiologist , no acute intracranial findings. ED physician has reviewed this radiology report. Re-Evaluation - Re-Evaluation First Eval Re-Evaluation Time: 20:05 Change: Unchanged Comment: Pt is still complaining of headache. Morphine will be ordered. Second Eval Re-Evaluation Time: 20:50 Change: Improved Comment: Pt reports that his headache is improved. Still waiting on UA at this time. Complex Multi-Symp Course/Dx Course Of Treatment: This patient is a 47 year old M presenting to [facility] accompanied by with a chief complaint of 3 seizure-like episodes lasting approximately 5 minutes that began earlier today. I had the patient take his daily dose of his seizure medication, [address] reveals, per radiologist, no acute intracranial findings. Bloodwork and UA obtained. In the ED course the patient received Reglan, Toradol, Benadryl, Morphine, and fluids. Consult with Dr. Bruno (neurology) at 2000. He recommends patient's dose of Aptiom be increased from 1400 mg daily to 1600 mg daily. He also communicated that the patient needs to follow up with his neurologist, Dr. Cole. The patient recieved the additional 200 mg of Aptiom. The patient will be discharged with instructions to increase his dosage of Aptiom and with follow up from Dr. Cole. The patient is agreeable with this plan. - Diagnoses Provider Diagnoses: Recurrent seizures - Physician Notifications Discussed Care Of Patient With: Sang Bruno Time Discussed With Above Provider: 20:01 Instructed by Provider To: Other - Consult with Dr. Bruno (neurology) at 2000. He recommends patient's dose of Aptiom be increased from 1400 mg daily to 1600 mg daily. He also communicated that the patient needs to follow up with his neurologist, Dr. Cole. Discharge - Sign-Out/Discharge Documenting (check all that apply): Discharge/Admit/Transfer - Discharge home - Discharge Plan Condition: Stable Disposition: HOME Patient Education Materials: Recurrent Seizures in Adults (ED) Referrals: Ervin Stanford NP [Primary Care Provider] - 3 Days Marilyn Cole MD [Medical Doctor] - 3 Days Additional Instructions: Take 4 tablets of Aptiom daily instead of 3 and a half. Please follow up with Dr. Cole this week. RETURN TO THE EMERGENCY DEPARTMENT FOR NEW OR WORSENING SYMPTOMS. The documentation as recorded by the Nza verduzco Emily accurately reflects the service I personally performed and the decisions made by me, Renny Kraus MD.
[2017-09-08] MEDS ORDERED: Butalb/Acetamin/Caff TAB* 1 TAB PO ONE (21:44)
[2017-09-08 21:57] VITALS: BP 140/74
== END 2017-09-08 21:54 | disposition home or self-care (01) ==
LOC: ED 18:29
DX: G40.909 Epilepsy, unspecified, not intractable, without status epilepticus (principal); F17.290 Nicotine dependence, other tobacco product, uncomplicated
CPT/HCPCS: 36415; 70450; 80053; 81003; 81015; 83735; 85025; 96374; 96375; 99283; A9270-GY; J1200; J1885; J2270; J2765